=== PATIENT | female | born 1965 | race Caucasian/White ===

== ENCOUNTER → 2019-09-09 | Outpatient (CLI) | payer BC ==
--- NOTE | 2019-09-09 15:44 | CT ---
EXAMINATION TYPE: CT chest w con DATE OF EXAM: 09/09/2019 COMPARISON: NONE HISTORY: Paratracheal fullness CT DLP: 601 mGycm. Automated Exposure Control for Dose Reduction was Utilized. TECHNIQUE: CT scan of the thorax is performed following with IV Contrast, patient injected with 100 ml mL of Isovue 300. FINDINGS: LUNGS: Minimal bibasilar subsegmental dependent atelectasis. Pleural parenchymal scarring in the righ t middle lobe. The lungs are grossly clear, there is no concerning parenchymal mass or nodule identif ied. There is no pleural effusion or pneumothorax seen. The tracheobronchial tree is patent. MEDIASTINUM: There are no greater than 1 cm hilar or mediastinal lymph nodes. 9 mm short axis right p aratracheal lymph node is noted. No pericardial effusion is seen. Ascending thoracic aorta is withi n normal limits of size measuring 3.5 cm. Descending thoracic aorta is also not aneurysmal. OTHER: There are at least 3 hyperdense liver lesions. The largest in the left hepatic lobe on image 4 7 measuring 1.0 cm. The other 2 are marked on image 54 and 58 in the right hepatic lobe. Background h epatic steatosis is seen, limiting evaluation of hepatic masses. 2 small to accurately characterize l eft upper pole 3 mm renal lesion is present on image 54. Mild multilevel degenerative change of the t horacic spine. IMPRESSION: 1. Outside chest x-ray is not available for comparison however no right paratracheal mass is seen. Th ere is a nonenlarged normal-appearing 9 mm right paratracheal lymph node and normal caliber superior vena cava that may have accounted for the right paratracheal fullness. 2. Subtle arterial enhancing hepatic lesions that could represent flash filling hemangiomas or arteri al portal shunts. There is background hepatic steatosis limiting evaluation. The largest measures 1.0 cm. MRI liver with contrast would be best suited to further evaluate these findings.
== END | disposition home or self-care (01) ==
LOC: RADCTMAIN 14:48
PROVIDERS: ATTEND Family Medicine
DX: R91.1 Solitary pulmonary nodule (principal); K76.0 Fatty (change of) liver, not elsewhere classified
CPT/HCPCS: 71260; Q9967

== ENCOUNTER → 2019-10-05 | Outpatient (CLI) | payer BC ==
--- NOTE | 2019-10-05 12:27 | MR ---
EXAMINATION TYPE: MR liver wo/w con DATE OF EXAM: 10/05/2019 COMPARISON: Chest CT September 09, 2019. HISTORY: Lesions seen on CT scan. Right upper Abd pain CONTRAST: Standard multiplanar, multisequence MRI departmental protocol utilizing 7.5 mL intravenous Gadavist g adolinium contrast. Imaging is performed of the abdomen focusing on the liver. FINDINGS: Slightly suboptimal study as patient unable to hold breath. Liver: Liver remains normal in size. There is tiny 3 to 4 mm thin-walled cyst right hepatic lobe imag e 26 series 501. There are a few vague T2 hyperintense lesions scattered throughout the liver, larges t noted posterior right hepatic dome measuring 11 x 9 mm image 32 series 501. This lesion shows T1 hy pointensity with peripheral nodular enhancement and centripetal filling on dynamic postcontrast imagi ng consistent with small hemangioma. I do not see definitive lesion of concern left hepatic lobe late ral segment at level of draining hepatic vein on T1 or T2-weighted images or postcontrast images to c orrelate to the area of suspicion on recent chest CT. Lesion DOS of uncertain etiology perhaps even a rtifact. Other visualized lesions too small to further characterize for reference 4 mm right hepatic dome lesion image 31 series 501. Suboptimal study with portal vein filling on the first postcontrast image making not true hepatic arterial phase. Patent nondilated portal vein. Patent hepatic veins shaneka ining into IVC. No surrounding ascites. No suspicious biliary dilatation. Other: Lung bases remain clear. The pancreas, gallbladder, spleen, both adrenal glands are felt withi n normal limits. No concerning renal mass or hydronephrosis. No suspicious small or large bowel dilat ation. No abdominal ascites. No concerning abdominal adenopathy. Visualized osseous structures are in tact. IMPRESSION: Redemonstration of multiple small intrahepatic lesions too small to characterize, difficu lty correlating lesions seen on CT 2 MRI as MRI study is suboptimal. Largest measured lesion on MRI i s 1.1 cm long axis and has postcontrast MRI images consistent with benign hemangioma. Strongly favor multiple small benign intrahepatic lesions. Advise follow-up liver protocol contrast-enhanced CT or M RI in 6-12 months time to reassess. Source of patient's right upper abdominal pain is not identified.
== END | disposition home or self-care (01) ==
LOC: RADMRIMAIN 11:12
PROVIDERS: ATTEND Nurse Practitioner Family
DX: K76.9 Liver disease, unspecified (principal)
CPT/HCPCS: 74183; A9585

== ENCOUNTER → 2024-08-12 | Outpatient (CLI) | payer BC ==
--- NOTE | 2024-08-12 14:07 | BD ---
EXAMINATION TYPE: Axial Bone Density DATE OF EXAM: 08/12/2024 CLINICAL HISTORY: 58 years old Female. ICD-10 CODE: Z13.820 ENCOUNTER FOR SCREENING F , Additional H istory: Height: 5 ft 6 in Weight: 195 FRAX RISK QUESTIONS: no Alcohol (3 or more units per day): no Family History (Parent hip fracture): no Glucocorticoids (More than 3mos): no (Ex: prednisone, prednisolone, methylprednisolone, dexamethasone, and hydrocortisone). History of Fracture in Adulthood: no Secondary Osteoporosis: 1. Type 1 Diabetes: no 2. Hyperthyroidism: no 3. Menopause before 45: no 4. Malnutrition: no 5. Chronic liver disease: no Rheumatoid Arthritis: no Current Tobacco Use: no RISK FACTORS HISTORY OF: Surgery to Spine/Hip(right/left)/Wrist (right/left): left hip replacement When: 2009 MEDICATIONS: Thyroid Medications: none Osteoporosis Medications: none EXAM MEASUREMENTS: Bone mineral densitometry was performed using the [employer] System. Bone mineral density as measured about the Lumbar spine is: ----- L1-L4(G/cm2): 1.203 T Score Values are as follows: ----- L1: -1.0 ----- L2: -0.3 ----- L3: 0.9 ----- L4: 0.9 ----- L1-L4: 0.2 Z Score Values are as follows: ----- L1: -0.5 ----- L2: 0.2 ----- L3: 1.4 ----- L4: 1.3 ----- L1-L4: 0.7 baseline Bone mineral density about the R hip (g/cm2): 1.038 T Score values are as follows: -----R Neck: 0.0 -----R Total: 0.8 Z Score values are as follows: -----R Neck: 0.8 -----R Total: 1.2 baseline FRAX%s: The graph provided illustrates a 10.2 % chance for a major osteoporotic fx and a 0.2 % chance for the hips probability for fx in 10 years time. IMPRESSION: Normal (Values between +1 and -1 indicate normal bone mass). Consider repeating this study in 5 year s or sooner if there is some new clinical indication. NOTE: T-SCORE=SD OF THE YOUNG ADULT MEAN. [facility], , 08/12/2024 2:04 PM
--- NOTE | 2024-08-12 14:16 | MM ---
Reason for Exam: Screening (asymptomatic). Last mammogram was performed 1 year(s) and 7 month(s) ago. Patient History: Menarche at age 10. Hysterectomy at age 33. Postmenopausal. Patient used Hormonal Contraceptives for 10 years. Risk Values: Suzanne 5 year model risk: 1.0%. NCI Lifetime model risk: 5.3%. Prior Study Comparison: 02/15/2018 Bilateral Screening Mammogram, [facility] . 01/16/2023 Bilateral MG screening mammo w CAD, [facility]. Tissue Density: The breasts are heterogeneously dense, which may obscure small masses. Findings: Analyzed By CAD. There is no suspicious group of microcalcifications in either breast. Asymmetric nodular density seen only on the left MLO view 3.1 cm from the nipple. Additional views are recommended. Overall Assessment: Incomplete: need additional imaging evaluation, BI-RAD 0 Management: Diagnostic Mammogram of the left breast. . Patient should continue monthly self-breast exams. A clinical breast exam by your physician is recommended on an annual basis. This exam should not preclude additional follow-up of suspicious palpable abnormalities. Note on Suzanne scores and lifetime risk: 1. A Suzanne score greater than 3% is considered moderate risk. If this is the case, consider specialist referral to assess eligibility for a risk reducing agent. 2. If overall lifetime risk for the development of breast cancer is 20% or higher, the patient may qualify for future screening with alternating mammogram and breast MRI. [facility], , 08/12/2024 2:12 PM. Electronically signed and approved by: Clement Mcgregor M.D. Radiologis
== END | disposition home or self-care (01) ==
LOC: RADMAMWWP 13:15
PROVIDERS: ATTEND Family Medicine
DX: Z12.31 Encounter for screening mammogram for malignant neoplasm of breast (principal); Z13.820 Encounter for screening for osteoporosis; R92.333 Mammographic heterogeneous density, bilateral breasts; Z78.0 Asymptomatic menopausal state; Z92.0 Personal history of contraception
CPT/HCPCS: 77067; 77080

== ENCOUNTER 2024-08-17 10:50 | Day surgery (SDC) | payer BC ==
[2024-08-12 16:19] VITALS: BMI 29.9
[2024-08-17] MEDS: IV FLUID CONTINUATION 1,000 ML IV ONE ×2 (11:03→12:05)
[2024-08-17 11:19] VITALS: TEMP 98
[2024-08-17] MEDS: LACTATED RINGERS 1,000 ML IV SCH (11:19)
[2024-08-17] MEDS ORDERED: PROPOFOL 10 MG/ML 20 ML VIAL IV ONE (12:08)
--- NOTE | 2024-08-17 12:20 | P.PCN ---
Date of Procedure: 08/17/24 Procedure(s) Performed: BRIEF HISTORY: Patient is a 58-year-old pleasant white female scheduled for an elective colonoscopy as a part of screening for colon cancer. PROCEDURE PERFORMED: Colonoscopy. PREOPERATIVE DIAGNOSIS: Screening for colon cancer. IV sedation per Anesthesia. PROCEDURE: After informed consent was obtained, the patient, was brought into the endoscopy unit. IV sedation was administered by Anesthesia under continuous monitoring. Digital rectal examination was normal. Initially the Olympus CF-160 flexible video colonoscope was then inserted in the rectum, gradually advanced into the cecum without any difficulty. Careful examination was performed as the scope was gradually being withdrawn. Ileocecal valve and the appendiceal orifice were visualized and appeared normal. Prep was excellent. Mucosa of the cecum, ascending colon, transverse colon, descending colon, sigmoid colon, and rectum appeared normal. Retroflexion was performed in the rectum and no lesions were seen. The patient tolerated the procedure well. IMPRESSION: Normal-appearing colon from rectum to cecum with no evidence of colorectal neoplasia . RECOMMENDATIONS: Findings of this examination were discussed with the patient as well as her family. She was advised to have repeat screening colonoscopy in 10 years..
[2024-08-17 12:39] VITALS: BP 158/78; PULSE 85; RESP 18
== END 2024-08-17 13:25 | disposition home or self-care (01) ==
LOC: ORWHC2ENDO 10:50
PROVIDERS: ATTEND Internal Medicine Gastroenterology
DX: Z12.11 Encounter for screening for malignant neoplasm of colon (principal)
CPT/HCPCS: J2704; G0121

== ENCOUNTER → 2024-08-18 | Outpatient (CLI) | payer BC ==
--- NOTE | 2024-08-18 13:08 | MM ---
Reason for Exam: Additional evaluation requested from abnormal screening. Last screening mammogram was performed less than 1 month ago. Patient History: Menarche at age 10. Hysterectomy at age 33. Postmenopausal. Patient used Hormonal Contraceptives for 10 years. Risk Values: Suzanen 5 year model risk: 1.0%. NCI Lifetime model risk: 5.3%. Prior Study Comparison: 02/15/2018 Bilateral Screening Mammogram, [facility] . 01/16/2023 Bilateral MG screening mammo w CAD, [facility]. 08/12/2024 Bilateral MG screening mammo w CAD, [facility]. Tissue Density: Left: There are scattered areas of fibroglandular density. Findings: Analyzed By CAD. The central focal asymmetry anterior to middle depth left breast disperses on additional views compatible with benign superimposition shadow. Overall Assessment: Benign, BI-RAD 2 Management: Screening Mammogram of both breasts in 1 year. Results were given to the patient verbally at the time of exam. Patient should continue monthly self-breast exams. A clinical breast exam by your physician is recommended on an annual basis. This exam should not preclude additional follow-up of suspicious palpable abnormalities. Note on Suzanne scores and lifetime risk: 1. A Suznane score greater than 3% is considered moderate risk. If this is the case, consider specialist referral to assess eligibility for a risk reducing agent. 2. If overall lifetime risk for the development of breast cancer is 20% or higher, the patient may qualify for future screening with alternating mammogram and breast MRI. [facility], , 08/18/2024 1:05 PM. Electronically signed and approved by: Mari Caro M.D. Radiologist
== END | disposition home or self-care (01) ==
LOC: RADMAMWWP 11:33
PROVIDERS: ATTEND Family Medicine
DX: R92.8 Other abnormal and inconclusive findings on diagnostic imaging of breast (principal); R92.322 Mammographic fibroglandular density, left breast; Z78.0 Asymptomatic menopausal state; Z92.0 Personal history of contraception
CPT/HCPCS: 77061; 77065